=== PATIENT | male | born 2005 | race Caucasian/White ===

== ENCOUNTER 2023-03-19 14:21 | Outpatient (OUT) | payer OTHER, SELFPAY ==
[2023-03-20 15:08] LABS: Hgb Solubility Negative (Negative)
== END 2023-03-19 14:22 | disposition home or self-care (01) ==
LOC: LAB 14:24
PROVIDERS: PCP Family Medicine; Visit Provider Family Medicine
DX: Z00.00 Encounter for general adult medical examination without abnormal findings (principal)
CPT/HCPCS: 36415; 85660